=== PATIENT | male | born 1965 | race Two or more races ===

== ENCOUNTER 2017-05-28 15:53 | Emergency (ER) | payer BC ==
[~2017-05-28] VITALS: Ht 165.1 cm; Wt 68.0 kg
[2017-05-28 16:08] VITALS: BP 126/90
[2017-05-28] MEDS ORDERED: IBUPROFEN 800 MG TAB PO ONE (18:15)
== END 2017-05-28 18:27 | disposition home or self-care (01) ==
LOC: ER 15:53
DX: J40 Bronchitis, not specified as acute or chronic (principal); E11.9 Type 2 diabetes mellitus without complications; E78.5 Hyperlipidemia, unspecified
CPT/HCPCS: 71046; 87400